=== PATIENT | female | born 1960 | race Caucasian/White ===

== ENCOUNTER 2019-03-16 16:36 | Emergency (ER) | payer BC, OTHER ==
[2019-03-16] MEDS: KETOROLAC 30 MG INJ IM (17:29)
== END 2019-03-16 18:43 | disposition home or self-care (01) ==
LOC: FTE 16:36
DX: R19.7 Diarrhea, unspecified (principal); I10 Essential (primary) hypertension; F17.210 Nicotine dependence, cigarettes, uncomplicated; J06.9 Acute upper respiratory infection, unspecified
CPT/HCPCS: 96372; 99284-25; J1885

== ENCOUNTER 2019-03-21 22:28 | Emergency (ER) | payer BC, OTHER ==
[2019-03-22] MEDS: SOD CHLORIDE 0.9% 500 ML IV (00:24)
[2019-03-22 01:10] LABS: ADD MAN DIFF? NO
[2019-03-22 01:13] LABS: BASOPHIL # 0.1 10^3/ul (0.0-0.1); BASOPHILS % 0.9 % (0.0-2.0); EOSINOPHILS # 0.2 10^3/ul (0.0-0.5); EOSINOPHILS % 1.7 % (0.0-7.0); HEMATOCRIT 42.2 % (37.0-47.0); HEMOGLOBIN 14.5 g/dl (12.0-16.0); LYMPHOCYTES # 3.7 10^3/ul (0.8-2.9); LYMPHOCYTES % 37.7 % (15.0-51.0); MEAN CORPUSCULAR HEMOGLOBIN 29.8 pg (29.0-33.0); MEAN CORPUSCULAR HGB CONC 34.4 g/dl (32.0-37.0); MEAN CORPUSCULAR VOLUME 86.7 fl (82.0-101.0); MEAN PLATELET VOLUME 9.6 fl (7.4-10.4); MONOCYTE # 0.6 10^3/ul (0.3-0.9); MONOCYTES % 5.9 % (0.0-11.0); NEUTROPHIL # 5.1 10^3/ul (1.6-7.5); NEUTROPHILS % 51.8 % (39.0-77.0); PLATELET COUNT 323 10^3/UL (140-415); RED BLOOD COUNT 4.87 10^6/ul (4.20-5.40); RED CELL DISTRIBUTION WIDTH 12.2 % (11.5-14.5)
[2019-03-22 01:13] LABS: WHITE BLOOD COUNT 9.9 10^3/ul (4.8-10.8)
[2019-03-22] MEDS: ONDANSETRON 4 MG INJ IV (01:28)
[2019-03-22] MEDS: morphine 4 MG/ML VIAL IV (01:28)
[2019-03-22 01:30] LABS: ALANINE AMINOTRANSFERASE 49 IU/L (13-69); ALBUMIN 4.1 g/dl (3.3-4.9); ALBUMIN/GLOBULIN RATIO 1.28; ALKALINE PHOSPHATASE 100 IU/L (42-121); ANION GAP 10 (5-13); ASPARTATE AMINO TRANSFERASE 37 IU/L (15-46); BILIRUBIN,INDIRECT 0.8 mg/dl (0-1.1); BILIRUBIN,TOTAL 0.8 mg/dl (0.2-1.3); BLOOD UREA NITROGEN 13 mg/dl (7-20); CALCIUM 9.2 mg/dl (8.4-10.2); CARBON DIOXIDE 26 mmol/L (21-31); CHLORIDE 98 mmol/L (97-110); CREATININE 0.66 mg/dl (0.44-1.00); Estimated GFR > 60 mL/min (>60); GLUCOSE 318 mg/dl (70-220); LIPASE 381 U/L (23-300); POTASSIUM 4.1 mmol/L (3.5-5.1); SODIUM 134 mmol/L (135-144); TOTAL PROTEIN 7.3 g/dl (6.1-8.1)
[2019-03-22 01:31] LABS: ADD UMIC YES; UR ASCORBIC ACID 40 mg/dL (NEGATIVE); UR BACTERIA FEW /HPF (NONE SEEN); UR BILIRUBIN (Dip) 1+ mg/dL (NEGATIVE); UR BLOOD (Dip) NEGATIVE (NEGATIVE); UR CLARITY CLOUDY (CLEAR); UR COLOR AMBER (YELLOW); UR GLUCOSE (Dip) 1+ mg/dL (NEGATIVE); UR KETONES (Dip) TRACE mg/dL (NEGATIVE); UR LEUKOCYTE ESTERASE (Dip) NEGATIVE Leu/ul (NEGATIVE); UR MUCUS MANY /HPF (NONE SEEN); UR NITRITE (Dip) NEGATIVE (NEGATIVE); UR RBC 2 /HPF (0-5); UR SPECIFIC GRAVITY (Dip) 1.034 (1.003-1.030); UR SQUAMOUS EPITHELIAL CELL MODERATE /HPF (FEW); UR TOTAL PROTEIN (Dip) 2+ mg/dl (NEGATIVE); UR UROBILINOGEN (Dip) 2+ mg/dL (NEGATIVE); UR WBC 5 /HPF (0-5)
[2019-03-22 01:41] LABS: TROPONIN-I < 0.012 ng/ml (0.000-0.120)
[2019-03-22 05:23] LABS: INR 0.92; PROTIME 12.5 Sec (11.9-14.9)
[2019-03-22 05:24] LABS: PARTIAL THROMBOPLASTIN TIME 31.1 Sec (23.0-35.0)
== END 2019-03-22 05:00 | disposition home or self-care (01) ==
LOC: E/R 22:28
DX: K59.00 Constipation, unspecified (principal); N39.0 Urinary tract infection, site not specified; I10 Essential (primary) hypertension; F17.210 Nicotine dependence, cigarettes, uncomplicated; Z79.84 Long term (current) use of oral hypoglycemic drugs
CPT/HCPCS: 36415; 71045; 74176; 80053; 81001; 83690; 84484; 85025; 85610; 85730; 93005; 96374; 96375; 99285-25

== ENCOUNTER 2019-04-01 00:23 | Emergency (ER) | payer BC ==
[2019-04-01 01:28] LABS: ADD MAN DIFF? NO
[2019-04-01 01:33] LABS: WHITE BLOOD COUNT 7.1 10^3/ul (4.8-10.8)
[2019-04-01 01:33] LABS: BASOPHIL # 0.1 10^3/ul (0.0-0.1); BASOPHILS % 1.1 % (0.0-2.0); EOSINOPHILS # 0.2 10^3/ul (0.0-0.5); EOSINOPHILS % 3.4 % (0.0-7.0); HEMATOCRIT 43.6 % (37.0-47.0); HEMOGLOBIN 14.6 g/dl (12.0-16.0); LYMPHOCYTES # 3.3 10^3/ul (0.8-2.9); LYMPHOCYTES % 46.8 % (15.0-51.0); MEAN CORPUSCULAR HEMOGLOBIN 29.2 pg (29.0-33.0); MEAN CORPUSCULAR HGB CONC 33.5 g/dl (32.0-37.0); MEAN CORPUSCULAR VOLUME 87.2 fl (82.0-101.0); MEAN PLATELET VOLUME 10.9 fl (7.4-10.4); MONOCYTE # 0.6 10^3/ul (0.3-0.9); NEUTROPHIL # 2.9 10^3/ul (1.6-7.5); NEUTROPHILS % 40.4 % (39.0-77.0); PLATELET COUNT 340 10^3/UL (140-415); RED CELL DISTRIBUTION WIDTH 12.1 % (11.5-14.5)
[2019-04-01] MEDS: SOD CHLORIDE 0.9% 1,000 ML IV (01:33)
[2019-04-01 01:35] LABS: ADD UMIC NO; UR ASCORBIC ACID NEGATIVE (NEGATIVE); UR BILIRUBIN (Dip) NEGATIVE (NEGATIVE); UR BLOOD (Dip) NEGATIVE (NEGATIVE); UR CLARITY CLEAR (CLEAR); UR COLOR STRAW (YELLOW); UR GLUCOSE (Dip) NEGATIVE (NEGATIVE); UR KETONES (Dip) NEGATIVE (NEGATIVE); UR LEUKOCYTE ESTERASE (Dip) NEGATIVE Leu/ul (NEGATIVE); UR NITRITE (Dip) NEGATIVE (NEGATIVE); UR SPECIFIC GRAVITY (Dip) 1.004 (1.003-1.030); UR TOTAL PROTEIN (Dip) NEGATIVE (NEGATIVE); UR UROBILINOGEN (Dip) NEGATIVE (NEGATIVE)
[2019-04-01 01:49] LABS: ALANINE AMINOTRANSFERASE 42 IU/L (13-69); ALBUMIN 4.2 g/dl (3.3-4.9); ALKALINE PHOSPHATASE 94 IU/L (42-121); ANION GAP 10 (5-13); ASPARTATE AMINO TRANSFERASE 29 IU/L (15-46); BILIRUBIN,INDIRECT 0.6 mg/dl (0-1.1); BILIRUBIN,TOTAL 0.6 mg/dl (0.2-1.3); BLOOD UREA NITROGEN 13 mg/dl (7-20); CALCIUM 9.5 mg/dl (8.4-10.2); CARBON DIOXIDE 24 mmol/L (21-31); CHLORIDE 105 mmol/L (97-110); CREATININE 0.61 mg/dl (0.44-1.00); Estimated GFR > 60 mL/min (>60); GLUCOSE 142 mg/dl (70-220); POTASSIUM 4.2 mmol/L (3.5-5.1); SODIUM 139 mmol/L (135-144); TOTAL PROTEIN 7.2 g/dl (6.1-8.1)
[2019-04-01 01:51] LABS: INR 0.86; PROTIME 11.8 Sec (11.9-14.9); PT RATIO 0.9
[2019-04-01 01:52] LABS: PARTIAL THROMBOPLASTIN TIME 29.1 Sec (23.0-35.0)
[2019-04-01 02:00] LABS: TROPONIN-I < 0.012 ng/ml (0.000-0.120)
[2019-04-01 02:05] LABS: FREE THYROXINE INDEX (Calc) 3.01 ug/ml (0.65-3.89); T4 (THYROXINE) 9.7 ug/dl (5.5-11.0)
== END 2019-04-01 03:51 | disposition home or self-care (01) ==
LOC: E/R 00:23
DX: R53.1 Weakness (principal); R20.2 Paresthesia of skin; Z79.84 Long term (current) use of oral hypoglycemic drugs; Z86.73 Personal history of transient ischemic attack (TIA), and cerebral infarction without residual deficits; Z87.891 Personal history of nicotine dependence
CPT/HCPCS: 36415; 70450; 71045; 80053; 81003; 82962; 84436; 84479; 84484; 85025; 85610; 85730; 93005; 99285-25

== ENCOUNTER 2019-04-02 16:34 | Inpatient (IN) | payer BC ==
[2019-04-02 19:36] LABS: ADD MAN DIFF? NO
[2019-04-02] MEDS: SOD CHLORIDE 0.9% 500 ML IV (19:36)
[2019-04-02 19:41] LABS: BASOPHIL # 0.1 10^3/ul (0.0-0.1); EOSINOPHILS # 0.2 10^3/ul (0.0-0.5); EOSINOPHILS % 3.4 % (0.0-7.0); HEMATOCRIT 45.4 % (37.0-47.0); LYMPHOCYTES # 2.5 10^3/ul (0.8-2.9); LYMPHOCYTES % 36.6 % (15.0-51.0); MEAN CORPUSCULAR HEMOGLOBIN 29.1 pg (29.0-33.0); MEAN PLATELET VOLUME 10.9 fl (7.4-10.4); MONOCYTE # 0.4 10^3/ul (0.3-0.9); MONOCYTES % 5.7 % (0.0-11.0); NEUTROPHIL # 3.6 10^3/ul (1.6-7.5); PLATELET COUNT 340 10^3/UL (140-415); RED BLOOD COUNT 5.16 10^6/ul (4.20-5.40); RED CELL DISTRIBUTION WIDTH 12.2 % (11.5-14.5)
[2019-04-02 19:41] LABS: WHITE BLOOD COUNT 6.7 10^3/ul (4.8-10.8)
[2019-04-02 20:02] LABS: ALANINE AMINOTRANSFERASE 48 IU/L (13-69); ALBUMIN 4.4 g/dl (3.3-4.9); ALBUMIN/GLOBULIN RATIO 1.41; ALKALINE PHOSPHATASE 93 IU/L (42-121); ANION GAP 13 (5-13); ASPARTATE AMINO TRANSFERASE 30 IU/L (15-46); BILIRUBIN,INDIRECT 0.5 mg/dl (0-1.1); BILIRUBIN,TOTAL 0.5 mg/dl (0.2-1.3); BLOOD UREA NITROGEN 17 mg/dl (7-20); CALCIUM 9.8 mg/dl (8.4-10.2); CARBON DIOXIDE 25 mmol/L (21-31); CHLORIDE 101 mmol/L (97-110); CREATININE 0.65 mg/dl (0.44-1.00); Estimated GFR > 60 mL/min (>60); GLUCOSE 130 mg/dl (70-220); POTASSIUM 5.2 mmol/L (3.5-5.1); SODIUM 139 mmol/L (135-144); TOTAL PROTEIN 7.5 g/dl (6.1-8.1)
[2019-04-02 20:08] LABS: ACETAMINOPHEN < 10.0 ug/ml (10.0-30.0); ETHANOL < 10.0 mg/dl (0-0); SALICYLATE < 1.0 mg/dl (5.0-30.0)
[2019-04-02 20:13] LABS: ADD UMIC NO; UR ASCORBIC ACID NEGATIVE (NEGATIVE); UR BILIRUBIN (Dip) NEGATIVE (NEGATIVE); UR BLOOD (Dip) NEGATIVE (NEGATIVE); UR CLARITY CLEAR (CLEAR); UR COLOR YELLOW (YELLOW); UR GLUCOSE (Dip) NEGATIVE (NEGATIVE); UR KETONES (Dip) NEGATIVE (NEGATIVE); UR LEUKOCYTE ESTERASE (Dip) NEGATIVE Leu/ul (NEGATIVE); UR NITRITE (Dip) NEGATIVE (NEGATIVE); UR SPECIFIC GRAVITY (Dip) 1.006 (1.003-1.030); UR TOTAL PROTEIN (Dip) NEGATIVE (NEGATIVE); UR UROBILINOGEN (Dip) NEGATIVE (NEGATIVE)
[2019-04-02 20:22] LABS: FREE THYROXINE INDEX (Calc) 2.79 ug/ml (0.65-3.89); T3 UPTAKE 29.1 % (23.5-40.5); T4 (THYROXINE) 9.6 ug/dl (5.5-11.0)
[2019-04-02 20:27] LABS: LACTIC ACID 2.8 mmol/L (0.5-2.0)
[2019-04-02] MEDS ORDERED: ONDANSETRON 4 MG INJ IV ×2 (20:30→21:00)
[2019-04-02] MEDS ORDERED: ACETAMINOPHEN 325 MG TAB PO (20:30)
[2019-04-02 20:33] LABS: AMPHETAMINE/METHAMPHETAMINE Negative (NEGATIVE); BARBITURATES Negative (NEGATIVE); BENZODIAZEPINES Negative (NEGATIVE); CANNABINOIDS Negative (NEGATIVE); COCAINE Negative (NEGATIVE); OPIATES Negative (NEGATIVE)
[2019-04-02] MEDS: ACETAMINOPHEN 325 MG TAB PO (20:38)
[2019-04-02] MEDS: SOD CHLORIDE 0.9% 1,000 ML IV (20:53)
[2019-04-02] MEDS ORDERED: NACL 0.9% 3 ML SYG IV (21:00)
[2019-04-02 21:18] LABS: HIV 1&2 ANTIBODY NEGATIVE (NEGATIVE)
[2019-04-02 21:28] LABS: LACTIC ACID 1.8 mmol/L (0.5-2.0)
[2019-04-03] MEDS: morphine 4 MG/ML VIAL IV (00:46)
[2019-04-03] MEDS: ONDANSETRON 4 MG INJ IV (00:46)
[2019-04-03] MEDS: SOD CHLORIDE 0.9% 1,000 ML IV ×2 (05:25→11:14)
[2019-04-03 05:55] LABS: HEMOGLOBIN A1C 11.6 % (0-5.9)
[2019-04-03 06:05] LABS: ADD MAN DIFF? NO
[2019-04-03 06:09] LABS: ALANINE AMINOTRANSFERASE 37 IU/L (13-69); ALBUMIN 3.6 g/dl (3.3-4.9); ALBUMIN/GLOBULIN RATIO 1.38; ALKALINE PHOSPHATASE 61 IU/L (42-121); ANION GAP 7 (5-13); ASPARTATE AMINO TRANSFERASE 25 IU/L (15-46); BILIRUBIN,INDIRECT 0.7 mg/dl (0-1.1); BILIRUBIN,TOTAL 0.7 mg/dl (0.2-1.3); BLOOD UREA NITROGEN 16 mg/dl (7-20); CALCIUM 8.8 mg/dl (8.4-10.2); CARBON DIOXIDE 26 mmol/L (21-31); CHLORIDE 107 mmol/L (97-110); CHOL/HDL RATIO 5.1 RATIO; CHOLESTEROL 133 mg/dl (100-200); Estimated GFR > 60 mL/min (>60); GLUCOSE 116 mg/dl (70-220); HDL CHOLESTEROL 26 mg/dl (37-92); LDL CHOLESTEROL,CALCULATED 68 mg/dl; MAGNESIUM 2.3 mg/dl (1.7-2.5); POTASSIUM 4.1 mmol/L (3.5-5.1); SODIUM 140 mmol/L (135-144); TOTAL PROTEIN 6.2 g/dl (6.1-8.1); TRIGLYCERIDES 193 mg/dl (0-149)
[2019-04-03] MEDS: METHYLPRED. NA SUCC 1,000 MG in DEXTROSE 5% 100 ML IVPB (06:09)
[2019-04-03 06:15] LABS: WHITE BLOOD COUNT 6.5 10^3/ul (4.8-10.8)
[2019-04-03 06:15] LABS: BASOPHIL # 0.1 10^3/ul (0.0-0.1); BASOPHILS % 0.8 % (0.0-2.0); EOSINOPHILS # 0.3 10^3/ul (0.0-0.5); EOSINOPHILS % 4.2 % (0.0-7.0); HEMOGLOBIN 12.9 g/dl (12.0-16.0); LYMPHOCYTES # 3.1 10^3/ul (0.8-2.9); LYMPHOCYTES % 46.9 % (15.0-51.0); MEAN CORPUSCULAR HEMOGLOBIN 29.5 pg (29.0-33.0); MEAN CORPUSCULAR HGB CONC 33.1 g/dl (32.0-37.0); MEAN PLATELET VOLUME 10.9 fl (7.4-10.4); MONOCYTE # 0.4 10^3/ul (0.3-0.9); MONOCYTES % 6.2 % (0.0-11.0); NEUTROPHIL # 2.7 10^3/ul (1.6-7.5); NEUTROPHILS % 41.7 % (39.0-77.0); PLATELET COUNT 292 10^3/UL (140-415); RED BLOOD COUNT 4.38 10^6/ul (4.20-5.40); RED CELL DISTRIBUTION WIDTH 12.2 % (11.5-14.5)
[2019-04-03] MEDS ORDERED: DEXTROSE 50% 50 ML SYRINGE IV ×2 (06:30)
[2019-04-03] MEDS ORDERED: GLUCOSE GEL 15 GRAM TUBE BUCCAL (06:30)
[2019-04-03] MEDS ORDERED: GLUCAGON 1 MG INJ IM (06:30)
[2019-04-03] MEDS ORDERED: GLUCOSE GEL 15 GRAM TUBE PO ×2 (06:30)
[2019-04-03] MEDS ORDERED: LORAZEPAM 2 MG INJ IV (07:00)
[2019-04-03] MEDS ORDERED: INSULIN GLARGINE [LANTus] (100 UNITS/ML) SYG SC (08:00)
[2019-04-03 08:10] LABS: CREATINE KINASE 66 IU/L (23-200)
[2019-04-03 08:14] LABS: C-REACTIVE PROTEIN < 0.5 mg/dl (0.0-0.9)
[2019-04-03] MEDS: INSULIN ASPART [NOVOLOG] 3 ML PEN SC ×5 (08:14→23:42)
[2019-04-03] MEDS: VITAMIN B COMPLEX/VIT C CAP PO (08:15)
[2019-04-03] MEDS: INSULIN GLARGINE [LANTus] (100 UNITS/ML) SYG SC (08:53)
[2019-04-03 09:04] LABS: ERYTHROCYTE SEDIMENTATION RATE 21 mm/Hr (0-30)
[2019-04-03] MEDS: GABAPENTIN 300 MG CAP PO ×2 (13:09→20:28)
[2019-04-03 13:16] LABS: HAAIG REFLEX REFLEX FILED
[2019-04-03 14:35] LABS: HEPATITIS B SURFACE ANTIGEN NEGATIVE (NEGATIVE)
[2019-04-03 15:43] LABS: RAPID PLASMA REAGIN NONREACTIVE (NR)
[2019-04-03 17:48] LABS: HEPATITIS B CORE ANTIBODY NEGATIVE (NEGATIVE); HEPATITIS C VIRAL ANTIBODY NEGATIVE (NEGATIVE)
[2019-04-03] MEDS: ACCU-CHEK XX (23:36)
[2019-04-04] MEDS: SOD CHLORIDE 0.9% 1,000 ML IV (01:15)
[2019-04-04] MEDS: ACCU-CHEK XX ×2 (02:00→22:30)
[2019-04-04] MEDS: KETOROLAC 15 MG INJ IV ×3 (03:18→22:14)
[2019-04-04] MEDS: METHYLPRED. NA SUCC 1,000 MG in DEXTROSE 5% 50 ML IVPB (04:49)
[2019-04-04] MEDS: NPH, HUMAN INSULIN ISOPHANE 3ML VIAL SC (04:53)
[2019-04-04 05:10] LABS: ADD MAN DIFF? NO
[2019-04-04 05:14] LABS: WHITE BLOOD COUNT 10.7 10^3/ul (4.8-10.8)
[2019-04-04 05:14] LABS: BASOPHILS % 0.1 % (0.0-2.0); HEMATOCRIT 39.3 % (37.0-47.0); HEMOGLOBIN 13.4 g/dl (12.0-16.0); LYMPHOCYTES # 1.3 10^3/ul (0.8-2.9); LYMPHOCYTES % 12.1 % (15.0-51.0); MEAN CORPUSCULAR HEMOGLOBIN 29.3 pg (29.0-33.0); MEAN CORPUSCULAR HGB CONC 34.1 g/dl (32.0-37.0); MEAN PLATELET VOLUME 10.6 fl (7.4-10.4); MONOCYTE # 0.4 10^3/ul (0.3-0.9); MONOCYTES % 3.5 % (0.0-11.0); NEUTROPHIL # 8.9 10^3/ul (1.6-7.5); NEUTROPHILS % 83.6 % (39.0-77.0); PLATELET COUNT 331 10^3/UL (140-415); RED BLOOD COUNT 4.57 10^6/ul (4.20-5.40); RED CELL DISTRIBUTION WIDTH 12.1 % (11.5-14.5)
[2019-04-04 05:32] LABS: ALANINE AMINOTRANSFERASE 46 IU/L (13-69); ALBUMIN 3.9 g/dl (3.3-4.9); ALBUMIN/GLOBULIN RATIO 1.39; ALKALINE PHOSPHATASE 68 IU/L (42-121); ANION GAP 10 (5-13); ASPARTATE AMINO TRANSFERASE 24 IU/L (15-46); BILIRUBIN,INDIRECT 0.6 mg/dl (0-1.1); BILIRUBIN,TOTAL 0.6 mg/dl (0.2-1.3); BLOOD UREA NITROGEN 16 mg/dl (7-20); CALCIUM 9.3 mg/dl (8.4-10.2); CARBON DIOXIDE 22 mmol/L (21-31); CHLORIDE 108 mmol/L (97-110); CREATININE 0.52 mg/dl (0.44-1.00); Estimated GFR > 60 mL/min (>60); GLUCOSE 238 mg/dl (70-220); POTASSIUM 3.9 mmol/L (3.5-5.1); SODIUM 140 mmol/L (135-144); TOTAL PROTEIN 6.7 g/dl (6.1-8.1)
[2019-04-04] MEDS: GABAPENTIN 300 MG CAP PO ×3 (08:24→21:54)
[2019-04-04] MEDS: VITAMIN B COMPLEX/VIT C CAP PO (08:24)
[2019-04-04] MEDS: INSULIN GLARGINE [LANTus] (100 UNITS/ML) SYG SC (08:28)
[2019-04-04] MEDS: INSULIN ASPART [NOVOLOG] 3 ML PEN SC ×6 (08:29→22:12)
[2019-04-04 11:57] LABS: ANA SCREEN NEGATIVE (NEGATIVE)
[2019-04-04] MEDS: LIDOCAINE 1% (MDV) 20 ML INJ (14:15)
[2019-04-04 16:47] LABS: CSF MN% 92.3 %; CSF PMN% 7.7 %; CSF RBC 0 /uL (0-0)
[2019-04-04 16:57] LABS: CSF MN% 94.1 %; CSF PMN% 5.9 %; CSF RBC 1000 /uL (0-0)
[2019-04-04 17:13] LABS: GLUCOSE,CSF 155 mg/dl (50-80)
[2019-04-04 17:13] LABS: TOTAL PROTEIN,CSF 103 mg/dl (12-60)
[2019-04-04 17:22] LABS: CSF CLARITY CLEAR; CSF WBC 13 /cmm (0-10); CSF#TUBE COUNT TUBE#4; CSF#TUBES REC'D 4
[2019-04-04 17:22] LABS: CSF COLOR COLORLESS
[2019-04-04 17:23] LABS: CSF CLARITY CLEAR; CSF COLOR COLORLESS; CSF WBC 17 /cmm (0-10); CSF#TUBE COUNT TUBE#1; CSF#TUBES REC'D 4
[2019-04-04] MEDS: ATORVASTATIN 10 MG TAB PO (21:54)
[2019-04-05] MEDS: ACCU-CHEK XX (02:00)
[2019-04-05 06:00] LABS: ADD MAN DIFF? NO; BASOPHILS % 0.1 % (0.0-2.0); HEMOGLOBIN 13.1 g/dl (12.0-16.0); LYMPHOCYTES # 2.1 10^3/ul (0.8-2.9); LYMPHOCYTES % 14.9 % (15.0-51.0); MEAN CORPUSCULAR HEMOGLOBIN 29.4 pg (29.0-33.0); MEAN CORPUSCULAR HGB CONC 33.6 g/dl (32.0-37.0); MEAN CORPUSCULAR VOLUME 87.4 fl (82.0-101.0); MEAN PLATELET VOLUME 11.1 fl (7.4-10.4); MONOCYTE # 0.6 10^3/ul (0.3-0.9); MONOCYTES % 4.4 % (0.0-11.0); NEUTROPHIL # 11.2 10^3/ul (1.6-7.5); NEUTROPHILS % 80.1 % (39.0-77.0); PLATELET COUNT 335 10^3/UL (140-415); RED BLOOD COUNT 4.46 10^6/ul (4.20-5.40); RED CELL DISTRIBUTION WIDTH 12.2 % (11.5-14.5)
[2019-04-05 06:56] LABS: ALANINE AMINOTRANSFERASE 31 IU/L (13-69); ALBUMIN 3.6 g/dl (3.3-4.9); ALKALINE PHOSPHATASE 68 IU/L (42-121); ANION GAP 13 (5-13); ASPARTATE AMINO TRANSFERASE 18 IU/L (15-46); BILIRUBIN,INDIRECT 0.5 mg/dl (0-1.1); BILIRUBIN,TOTAL 0.5 mg/dl (0.2-1.3); BLOOD UREA NITROGEN 20 mg/dl (7-20); CALCIUM 8.9 mg/dl (8.4-10.2); CARBON DIOXIDE 22 mmol/L (21-31); CHLORIDE 107 mmol/L (97-110); CREATININE 0.56 mg/dl (0.44-1.00); Estimated GFR > 60 mL/min (>60); GLUCOSE 201 mg/dl (70-220); SODIUM 142 mmol/L (135-144); TOTAL PROTEIN 6.6 g/dl (6.1-8.1)
[2019-04-05] MEDS: INSULIN GLARGINE [LANTus] (100 UNITS/ML) SYG SC (08:44)
[2019-04-05] MEDS: VITAMIN B COMPLEX/VIT C CAP PO (08:45)
[2019-04-05] MEDS: INSULIN ASPART [NOVOLOG] 3 ML PEN SC ×7 (08:46→21:00)
[2019-04-05] MEDS: GABAPENTIN 300 MG CAP PO ×3 (08:50→20:49)
[2019-04-05] MEDS: LISINOPRIL 10 MG TAB PO (08:51)
[2019-04-05] MEDS: KETOROLAC 15 MG INJ IV (08:52)
[2019-04-05] MEDS: BISACODYL (EC) 5 MG TAB PO (08:56)
[2019-04-05] MEDS: DOCUSATE SODIUM 100 MG CAP PO ×2 (13:07→20:49)
[2019-04-05] MEDS ORDERED: morphine 2 MG INJ IV (17:00)
[2019-04-05] MEDS: MAGNESIUM HYDROXIDE 30ML CUP PO (17:46)
[2019-04-05] MEDS: traMADol 50 MG TAB PO (17:55)
[2019-04-05] MEDS: ATORVASTATIN 10 MG TAB PO (20:49)
[2019-04-06] MEDS: ACCU-CHEK XX (02:00)
[2019-04-06 05:05] LABS: ADD MAN DIFF? NO
[2019-04-06 05:09] LABS: BASOPHILS % 0.3 % (0.0-2.0); EOSINOPHILS # 0.2 10^3/ul (0.0-0.5); EOSINOPHILS % 2.3 % (0.0-7.0); HEMATOCRIT 39.8 % (37.0-47.0); HEMOGLOBIN 13.1 g/dl (12.0-16.0); LYMPHOCYTES # 4.8 10^3/ul (0.8-2.9); LYMPHOCYTES % 48.9 % (15.0-51.0); MEAN CORPUSCULAR HEMOGLOBIN 29.2 pg (29.0-33.0); MEAN CORPUSCULAR HGB CONC 32.9 g/dl (32.0-37.0); MEAN CORPUSCULAR VOLUME 88.8 fl (82.0-101.0); MEAN PLATELET VOLUME 10.6 fl (7.4-10.4); MONOCYTE # 0.6 10^3/ul (0.3-0.9); NEUTROPHIL # 4.1 10^3/ul (1.6-7.5); NEUTROPHILS % 42.1 % (39.0-77.0); PLATELET COUNT 308 10^3/UL (140-415); RED BLOOD COUNT 4.48 10^6/ul (4.20-5.40); RED CELL DISTRIBUTION WIDTH 12.5 % (11.5-14.5)
[2019-04-06 05:09] LABS: WHITE BLOOD COUNT 9.8 10^3/ul (4.8-10.8)
[2019-04-06 05:41] LABS: ALANINE AMINOTRANSFERASE 40 IU/L (13-69); ALBUMIN 3.3 g/dl (3.3-4.9); ALBUMIN/GLOBULIN RATIO 1.32; ALKALINE PHOSPHATASE 57 IU/L (42-121); ANION GAP 11 (5-13); ASPARTATE AMINO TRANSFERASE 29 IU/L (15-46); BILIRUBIN,INDIRECT 0.5 mg/dl (0-1.1); BILIRUBIN,TOTAL 0.5 mg/dl (0.2-1.3); BLOOD UREA NITROGEN 24 mg/dl (7-20); CALCIUM 8.8 mg/dl (8.4-10.2); CARBON DIOXIDE 25 mmol/L (21-31); CHLORIDE 107 mmol/L (97-110); CREATININE 0.75 mg/dl (0.44-1.00); Estimated GFR > 60 mL/min (>60); GLUCOSE 115 mg/dl (70-220); POTASSIUM 4.2 mmol/L (3.5-5.1); SODIUM 143 mmol/L (135-144); TOTAL PROTEIN 5.8 g/dl (6.1-8.1)
[2019-04-06] MEDS: INSULIN ASPART [NOVOLOG] 3 ML PEN SC ×7 (07:50→20:34)
[2019-04-06] MEDS: CELECOXIB 100 MG CAP PO (08:21)
[2019-04-06] MEDS: DOCUSATE SODIUM 100 MG CAP PO ×2 (08:21→20:33)
[2019-04-06] MEDS: VITAMIN B COMPLEX/VIT C CAP PO (08:22)
[2019-04-06] MEDS: GABAPENTIN 300 MG CAP PO ×3 (08:22→20:33)
[2019-04-06] MEDS: LISINOPRIL 10 MG TAB PO (08:22)
[2019-04-06] MEDS: INSULIN GLARGINE [LANTus] (100 UNITS/ML) SYG SC (08:25)
[2019-04-06] MEDS: MAGNESIUM HYDROXIDE 30ML CUP PO (11:29)
[2019-04-06] MEDS: BISACODYL (EC) 5 MG TAB PO (11:29)
[2019-04-06] MEDS: SOD CHLORIDE 0.9% 1,000 ML IV ×2 (20:27→22:49)
[2019-04-06] MEDS: ATORVASTATIN 10 MG TAB PO (20:33)
[2019-04-07] MEDS: ACCU-CHEK XX (02:00)
[2019-04-07] MEDS: SOD CHLORIDE 0.9% 1,000 ML IV ×4 (04:01→22:45)
[2019-04-07 06:11] LABS: ADD MAN DIFF? NO
[2019-04-07 06:19] LABS: BASOPHILS % 0.3 % (0.0-2.0); EOSINOPHILS # 0.3 10^3/ul (0.0-0.5); EOSINOPHILS % 4.1 % (0.0-7.0); HEMATOCRIT 41.9 % (37.0-47.0); LYMPHOCYTES # 2.3 10^3/ul (0.8-2.9); LYMPHOCYTES % 29.3 % (15.0-51.0); MEAN CORPUSCULAR HEMOGLOBIN 29.4 pg (29.0-33.0); MEAN CORPUSCULAR HGB CONC 33.4 g/dl (32.0-37.0); MEAN PLATELET VOLUME 10.9 fl (7.4-10.4); MONOCYTE # 0.4 10^3/ul (0.3-0.9); NEUTROPHIL # 4.7 10^3/ul (1.6-7.5); NEUTROPHILS % 60.9 % (39.0-77.0); PLATELET COUNT 298 10^3/UL (140-415); RED BLOOD COUNT 4.76 10^6/ul (4.20-5.40); RED CELL DISTRIBUTION WIDTH 12.6 % (11.5-14.5)
[2019-04-07 06:19] LABS: WHITE BLOOD COUNT 7.8 10^3/ul (4.8-10.8)
[2019-04-07 06:52] LABS: ALANINE AMINOTRANSFERASE 44 IU/L (13-69); ALBUMIN 3.4 g/dl (3.3-4.9); ALBUMIN/GLOBULIN RATIO 1.25; ALKALINE PHOSPHATASE 62 IU/L (42-121); ANION GAP 8 (5-13); ASPARTATE AMINO TRANSFERASE 28 IU/L (15-46); BILIRUBIN,INDIRECT 0.7 mg/dl (0-1.1); BILIRUBIN,TOTAL 0.7 mg/dl (0.2-1.3); BLOOD UREA NITROGEN 17 mg/dl (7-20); CALCIUM 8.4 mg/dl (8.4-10.2); CARBON DIOXIDE 22 mmol/L (21-31); CHLORIDE 110 mmol/L (97-110); CREATININE 0.58 mg/dl (0.44-1.00); Estimated GFR > 60 mL/min (>60); GLUCOSE 163 mg/dl (70-220); POTASSIUM 4.4 mmol/L (3.5-5.1); SODIUM 140 mmol/L (135-144); TOTAL PROTEIN 6.1 g/dl (6.1-8.1)
[2019-04-07] MEDS: INSULIN ASPART [NOVOLOG] 3 ML PEN SC ×7 (07:49→20:37)
[2019-04-07] MEDS: INSULIN GLARGINE [LANTus] (100 UNITS/ML) SYG SC (07:49)
[2019-04-07] MEDS: LISINOPRIL 10 MG TAB PO (09:00)
[2019-04-07] MEDS: DOCUSATE SODIUM 100 MG CAP PO ×2 (09:11→20:32)
[2019-04-07] MEDS: CELECOXIB 100 MG CAP PO (09:11)
[2019-04-07] MEDS: GABAPENTIN 300 MG CAP PO ×3 (09:13→20:32)
[2019-04-07] MEDS: VITAMIN B COMPLEX/VIT C CAP PO (11:18)
[2019-04-07] MEDS: ENOXAPARIN 40 MG/0.4 ML SYG SC (11:26)
[2019-04-07 16:06] LABS: WEST NILE VIRUS ANTIBODY (IGG) <1.30 index; WEST NILE VIRUS ANTIBODY (IGM) <0.90 index
[2019-04-07] MEDS: ATORVASTATIN 10 MG TAB PO (20:32)
[2019-04-08] MEDS: ACCU-CHEK XX (02:22)
[2019-04-08] MEDS: traMADol 50 MG TAB PO (02:26)
[2019-04-08 05:19] LABS: ADD MAN DIFF? NO
[2019-04-08 05:26] LABS: BASOPHILS % 0.3 % (0.0-2.0); EOSINOPHILS # 0.5 10^3/ul (0.0-0.5); EOSINOPHILS % 5.9 % (0.0-7.0); HEMATOCRIT 39.8 % (37.0-47.0); HEMOGLOBIN 13.3 g/dl (12.0-16.0); LYMPHOCYTES # 4.4 10^3/ul (0.8-2.9); LYMPHOCYTES % 48.7 % (15.0-51.0); MEAN CORPUSCULAR HEMOGLOBIN 29.7 pg (29.0-33.0); MEAN CORPUSCULAR HGB CONC 33.4 g/dl (32.0-37.0); MEAN CORPUSCULAR VOLUME 88.8 fl (82.0-101.0); MEAN PLATELET VOLUME 10.6 fl (7.4-10.4); MONOCYTE # 0.5 10^3/ul (0.3-0.9); MONOCYTES % 5.1 % (0.0-11.0); NEUTROPHIL # 3.6 10^3/ul (1.6-7.5); NEUTROPHILS % 39.4 % (39.0-77.0); PLATELET COUNT 278 10^3/UL (140-415); RED BLOOD COUNT 4.48 10^6/ul (4.20-5.40); RED CELL DISTRIBUTION WIDTH 12.5 % (11.5-14.5)
[2019-04-08 06:02] LABS: ANION GAP 6 (5-13); BLOOD UREA NITROGEN 16 mg/dl (7-20); CALCIUM 8.3 mg/dl (8.4-10.2); CARBON DIOXIDE 25 mmol/L (21-31); CHLORIDE 111 mmol/L (97-110); CREATININE 0.62 mg/dl (0.44-1.00); Estimated GFR > 60 mL/min (>60); GLUCOSE 102 mg/dl (70-220); MAGNESIUM 2.4 mg/dl (1.7-2.5); PHOSPHORUS 4.8 mg/dl (2.5-4.9); POTASSIUM 3.8 mmol/L (3.5-5.1); SODIUM 142 mmol/L (135-144)
[2019-04-08] MEDS: INSULIN ASPART [NOVOLOG] 3 ML PEN SC ×7 (07:40→21:01)
[2019-04-08] MEDS: INSULIN GLARGINE [LANTus] (100 UNITS/ML) SYG SC (07:58)
[2019-04-08] MEDS: VITAMIN B COMPLEX/VIT C CAP PO (08:31)
[2019-04-08] MEDS: GABAPENTIN 300 MG CAP PO ×3 (08:31→20:40)
[2019-04-08] MEDS: DOCUSATE SODIUM 100 MG CAP PO ×2 (08:31→20:40)
[2019-04-08] MEDS: LISINOPRIL 10 MG TAB PO (08:32)
[2019-04-08] MEDS: MAGNESIUM HYDROXIDE 30ML CUP PO (08:47)
[2019-04-08] MEDS: ENOXAPARIN 40 MG/0.4 ML SYG SC (09:07)
[2019-04-08] MEDS: SOD CHLORIDE 0.9% 1,000 ML IV ×3 (10:09→23:20)
[2019-04-08] MEDS: CEFEPIME 1GM/50 ML (PMX) 50 ML IVPB ×2 (10:11→20:39)
[2019-04-08 11:22] LABS: LACTIC ACID 1.3 mmol/L (0.5-2.0)
[2019-04-08] MEDS: POLYETHYLENE GLYCOL 17 GM PACKET PO (15:24)
[2019-04-08 17:49] LABS: ADD UMIC YES; UR ASCORBIC ACID NEGATIVE (NEGATIVE); UR BILIRUBIN (Dip) NEGATIVE (NEGATIVE); UR BLOOD (Dip) NEGATIVE (NEGATIVE); UR CLARITY CLEAR (CLEAR); UR COLOR YELLOW (YELLOW); UR GLUCOSE (Dip) NEGATIVE (NEGATIVE); UR KETONES (Dip) NEGATIVE (NEGATIVE); UR LEUKOCYTE ESTERASE (Dip) 1+ Leu/ul (NEGATIVE); UR NITRITE (Dip) NEGATIVE (NEGATIVE); UR RBC 1 /HPF (0-5); UR TOTAL PROTEIN (Dip) NEGATIVE (NEGATIVE); UR UROBILINOGEN (Dip) NEGATIVE (NEGATIVE); UR WBC 2 /HPF (0-5)
[2019-04-08] MEDS: ATORVASTATIN 10 MG TAB PO (20:40)
[2019-04-08] MEDS: FAMOTIDINE 20 MG TAB PO (23:05)
[2019-04-09] MEDS: ACCU-CHEK XX (02:02)
[2019-04-09] MEDS: SOD CHLORIDE 0.9% 1,000 ML IV ×3 (04:20→19:31)
[2019-04-09 06:05] LABS: ADD MAN DIFF? NO
[2019-04-09 06:10] LABS: BASOPHILS % 0.3 % (0.0-2.0); EOSINOPHILS # 0.2 10^3/ul (0.0-0.5); EOSINOPHILS % 2.2 % (0.0-7.0); HEMATOCRIT 41.5 % (37.0-47.0); HEMOGLOBIN 13.7 g/dl (12.0-16.0); LYMPHOCYTES # 3.7 10^3/ul (0.8-2.9); LYMPHOCYTES % 34.2 % (15.0-51.0); MEAN CORPUSCULAR HEMOGLOBIN 28.8 pg (29.0-33.0); MEAN CORPUSCULAR VOLUME 87.2 fl (82.0-101.0); MEAN PLATELET VOLUME 10.6 fl (7.4-10.4); MONOCYTE # 0.6 10^3/ul (0.3-0.9); MONOCYTES % 5.4 % (0.0-11.0); NEUTROPHIL # 6.1 10^3/ul (1.6-7.5); NEUTROPHILS % 57.2 % (39.0-77.0); PLATELET COUNT 298 10^3/UL (140-415); RED BLOOD COUNT 4.76 10^6/ul (4.20-5.40); RED CELL DISTRIBUTION WIDTH 12.5 % (11.5-14.5)
[2019-04-09 06:10] LABS: WHITE BLOOD COUNT 10.7 10^3/ul (4.8-10.8)
[2019-04-09 06:21] LABS: ANION GAP 9 (5-13); BLOOD UREA NITROGEN 15 mg/dl (7-20); CALCIUM 8.7 mg/dl (8.4-10.2); CARBON DIOXIDE 23 mmol/L (21-31); CHLORIDE 110 mmol/L (97-110); CREATININE 0.54 mg/dl (0.44-1.00); Estimated GFR > 60 mL/min (>60); GLUCOSE 113 mg/dl (70-220); MAGNESIUM 2.5 mg/dl (1.7-2.5); SODIUM 142 mmol/L (135-144)
[2019-04-09] MEDS: INSULIN ASPART [NOVOLOG] 3 ML PEN SC ×7 (07:38→21:00)
[2019-04-09] MEDS: FAMOTIDINE 20 MG TAB PO (08:18)
[2019-04-09] MEDS: CEFEPIME 1GM/50 ML (PMX) 50 ML IVPB ×2 (08:18→21:25)
[2019-04-09] MEDS: VITAMIN B COMPLEX/VIT C CAP PO (08:19)
[2019-04-09] MEDS: DOCUSATE SODIUM 100 MG CAP PO ×2 (08:19→21:26)
[2019-04-09] MEDS: LISINOPRIL 10 MG TAB PO (08:19)
[2019-04-09] MEDS: GABAPENTIN 300 MG CAP PO ×2 (08:19→12:11)
[2019-04-09] MEDS: ENOXAPARIN 40 MG/0.4 ML SYG SC (08:31)
[2019-04-09] MEDS: INSULIN GLARGINE [LANTus] (100 UNITS/ML) SYG SC (08:31)
[2019-04-09] MEDS: BISACODYL (EC) 5 MG TAB PO (12:11)
[2019-04-09] MEDS: traMADol 50 MG TAB PO ×3 (12:11→22:17)
[2019-04-09] MEDS: MAGNESIUM HYDROXIDE 30ML CUP PO (12:11)
[2019-04-09] MEDS: ACETAMINOPHEN 325 MG TAB PO (15:44)
[2019-04-09] MEDS: ATORVASTATIN 10 MG TAB PO (21:26)
[2019-04-09] MEDS: GABAPENTIN 100 MG CAP PO (21:27)
[2019-04-10] MEDS: ACCU-CHEK XX (02:00)
[2019-04-10] MEDS: ACETAMINOPHEN 325 MG TAB PO (04:10)
[2019-04-10] MEDS: INSULIN ASPART [NOVOLOG] 3 ML PEN SC ×7 (08:00→20:50)
[2019-04-10] MEDS: SOD CHLORIDE 0.9% 1,000 ML IV ×3 (08:11→20:51)
[2019-04-10] MEDS: FAMOTIDINE 20 MG TAB PO (08:11)
[2019-04-10] MEDS: CEFEPIME 1GM/50 ML (PMX) 50 ML IVPB (08:11)
[2019-04-10] MEDS: VITAMIN B COMPLEX/VIT C CAP PO (08:11)
[2019-04-10] MEDS: DOCUSATE SODIUM 100 MG CAP PO (08:11)
[2019-04-10] MEDS: POLYETHYLENE GLYCOL 17 GM PACKET PO (08:11)
[2019-04-10] MEDS: GABAPENTIN 100 MG CAP PO ×3 (08:12→20:49)
[2019-04-10] MEDS: INSULIN GLARGINE [LANTus] (100 UNITS/ML) SYG SC (08:25)
[2019-04-10] MEDS: ENOXAPARIN 40 MG/0.4 ML SYG SC (08:26)
[2019-04-10] MEDS ORDERED: CALCIUM CARBONATE 500 MG CHEW TAB PO (10:00)
[2019-04-10] MEDS ORDERED: BISACODYL (EC) 5 MG TAB PO (10:00)
[2019-04-10] MEDS: LIDOCAINE/MYLANTA 40 ML BTL PO (11:25)
[2019-04-10] MEDS: traMADol 50 MG TAB PO (20:49)
[2019-04-10] MEDS: SENNA/DOCUSATE NA (8.6MG/50MG) TAB PO (20:50)
[2019-04-10] MEDS: ATORVASTATIN 10 MG TAB PO (20:50)
[2019-04-11] MEDS: ACCU-CHEK XX (02:00)
[2019-04-11] MEDS: PANTOPRAZOLE (EC) 40 MG TAB PO (05:02)
[2019-04-11] MEDS: INSULIN ASPART [NOVOLOG] 3 ML PEN SC ×7 (08:00→21:00)
[2019-04-11] MEDS: INSULIN GLARGINE [LANTus] (100 UNITS/ML) SYG SC (08:30)
[2019-04-11] MEDS: ENOXAPARIN 40 MG/0.4 ML SYG SC (08:30)
[2019-04-11] MEDS: SENNA/DOCUSATE NA (8.6MG/50MG) TAB PO ×2 (08:32→20:59)
[2019-04-11] MEDS: VITAMIN B COMPLEX/VIT C CAP PO (08:32)
[2019-04-11] MEDS: GABAPENTIN 100 MG CAP PO ×3 (08:32→20:59)
[2019-04-11 17:21] LABS: WEST NILE VIRUS ANTIBODY (IGG) <1.30 index; WEST NILE VIRUS ANTIBODY (IGM) <0.90 index
[2019-04-11] MEDS: ATORVASTATIN 10 MG TAB PO (20:59)
[2019-04-11] MEDS: traMADol 50 MG TAB PO ×2 (20:59→22:33)
[2019-04-12] MEDS: ACCU-CHEK XX (02:00)
[2019-04-12] MEDS: PANTOPRAZOLE (EC) 40 MG TAB PO (05:42)
[2019-04-12] MEDS: INSULIN ASPART [NOVOLOG] 3 ML PEN SC ×7 (07:59→23:50)
[2019-04-12] MEDS: INSULIN GLARGINE [LANTus] (100 UNITS/ML) SYG SC ×2 (08:00→09:15)
[2019-04-12] MEDS: traMADol 50 MG TAB PO ×3 (09:09→21:41)
[2019-04-12] MEDS: GABAPENTIN 100 MG CAP PO ×3 (09:09→21:42)
[2019-04-12] MEDS: SENNA/DOCUSATE NA (8.6MG/50MG) TAB PO ×2 (09:09→21:00)
[2019-04-12] MEDS: VITAMIN B COMPLEX/VIT C CAP PO (09:09)
[2019-04-12] MEDS: ENOXAPARIN 40 MG/0.4 ML SYG SC (09:15)
[2019-04-12] MEDS: ATORVASTATIN 10 MG TAB PO (21:42)
[2019-04-13] MEDS: ACCU-CHEK XX (02:55)
[2019-04-13] MEDS: PANTOPRAZOLE (EC) 40 MG TAB PO (06:33)
[2019-04-13] MEDS: INSULIN ASPART [NOVOLOG] 3 ML PEN SC ×6 (08:00→17:17)
[2019-04-13] MEDS: GABAPENTIN 100 MG CAP PO ×2 (08:11→12:01)
[2019-04-13] MEDS: SENNA/DOCUSATE NA (8.6MG/50MG) TAB PO (08:11)
[2019-04-13] MEDS: VITAMIN B COMPLEX/VIT C CAP PO (08:11)
[2019-04-13] MEDS: ENOXAPARIN 40 MG/0.4 ML SYG SC (08:15)
[2019-04-13] MEDS: MENTHOL/METH SALICYLATE OINT TOP ×3 (11:00→17:00)
== END 2019-04-13 19:39 | disposition home health service (06) | DRG 74 ==
LOC: 6WM 04-07 01:44 → FTE 16:34 → MS1 20:33
PROC: 009U3ZX Drainage of Spinal Canal, Percutaneous Approach, Diagnostic (ICD-10-PCS; principal; 2019-04-04)
PROC: B01BZZZ Fluoroscopy of Spinal Cord (ICD-10-PCS; 2019-04-04)
DX: E11.42 Type 2 diabetes mellitus with diabetic polyneuropathy (principal); E87.2 Acidosis; G62.89 Other specified polyneuropathies; E11.65 Type 2 diabetes mellitus with hyperglycemia; I10 Essential (primary) hypertension; E78.00 Pure hypercholesterolemia, unspecified; M47.897 Other spondylosis, lumbosacral region; I95.9 Hypotension, unspecified; D72.829 Elevated white blood cell count, unspecified; Z79.84 Long term (current) use of oral hypoglycemic drugs; Z88.0 Allergy status to penicillin; Z87.891 Personal history of nicotine dependence
CPT/HCPCS: 36415; 70551; 71045; 72141; 72148; 72157; 72195; 73510; 73610-RT; 80048; 80053; 80061; 80307; 81001; 81003; 82040; 82042; 82306; 82550; 82652; 82784; 82945; 82962; 83036; 83605; 83735; 84100; 84157; 84166; 84436; 84443; 84479; 85025; 85651; 86038; 86140; 86592; 86703; 86704; 86709; 86788; 86789; 86803; 87040-91; 87070; 87086; 87340; 89051; 93005; 97110; 97116; 97162; 97163; 97530; 99285-25